=== PATIENT | male | born 1970 | race African-American/Black ===

== ENCOUNTER 2023-08-04 07:49 | Day surgery (SDC) | payer OTHER ==
[~2023-08-04] VITALS: Ht 170.2 cm; Wt 76.2 kg
[~2023-08-04 07:49] MED LIST: LISINOPRIL20 M1 PO; LORTAB 1010 MG PO; MELOXICAM15 MG PO; NARCAN4 MG/0.1 M; PRAVASTATIN20 MG PO
[2023-08-04] MEDS ORDERED: SODIUM CHLORIDE 0.9% 10 ML SYR ONE ×2 (07:53→08:58)
[2023-08-04] MEDS ORDERED: MIDAZOLAM HCL 2 MG/2 ML VIAL ONE (08:58)
[2023-08-04] MEDS ORDERED: LIDOCAINE MPF 1% (10 MG/ML) 5 ML VIAL ONE (10:20)
[2023-08-04] MEDS ORDERED: TRIAMCINOLONE ACETONIDE 200 MG/5 ML VIAL ONE (10:20)
[2023-08-04] MEDS ORDERED: BUPIVACAINE HCL PF 0.5 % 50 MG/10 ML SDV ONE (10:20)
[2023-08-04] MEDS ORDERED: Iopamidol 61% 5 ML SYR IV ONE (10:25)
[2023-08-04 11:28] VITALS: BP 134/73
== END 2023-08-04 09:40 | disposition home or self-care (01) ==
LOC: ORM 07:49
PROVIDERS: ATTEND Student in an Organized Health Care Education/Training Program
DX: G89.4 Chronic pain syndrome (principal); M79.605 Pain in left leg; M70.62 Trochanteric bursitis, left hip
CPT/HCPCS: Q9967

== ENCOUNTER 2024-03-29 07:52 | Day surgery (SDC) | payer OTHER ==
[~2024-03-29] VITALS: Ht 170.2 cm; Wt 74.8 kg
[2024-03-29] MEDS ORDERED: SODIUM CHLORIDE 0.9% 10 ML SYR ONE (08:15)
[2024-03-29] MEDS ORDERED: Iopamidol 61% 5 ML SYR IV ONE (09:27)
[2024-03-29] MEDS ORDERED: TRIAMCINOLONE ACETONIDE 40 MG/ML ML ONE (09:28)
[2024-03-29] MEDS ORDERED: LIDOCAINE HCL 1% (10MG/ML) 100 MG/10 ML MDV ONE (09:29)
[2024-03-29] MEDS ORDERED: BUPIVACAINE HCL PF 0.5 % 50 MG/10 ML SDV ONE (09:29)
[2024-03-29 11:10] VITALS: BP 126/81
== END 2024-03-29 10:10 | disposition home or self-care (01) ==
LOC: ORM 07:52
PROVIDERS: ATTEND Student in an Organized Health Care Education/Training Program
DX: M70.62 Trochanteric bursitis, left hip (principal); M25.552 Pain in left hip; G89.4 Chronic pain syndrome
CPT/HCPCS: J3301; Q9967